=== PATIENT | female | born 1995 | race African-American/Black ===

== ENCOUNTER 2019-03-20 18:43 | Emergency (ER) | payer MEDICAID ==
[~2019-03-20] VITALS: Ht 157.5 cm; Wt 49.0 kg
[2019-03-20 18:54] VITALS: BP 105/71
--- NOTE | 2019-03-20 18:55 | NUR ---
ED Nurse Note: Walk-inpatient presents with complaints of excesive bleeding after taking pill.
[2019-03-20] MEDS ORDERED: NKM (18:58)
[2019-03-20] MEDS ORDERED: Metoclopramide 10mg/2ml Inj IVP ONE (19:15)
--- NOTE | 2019-03-20 19:41 | NUR ---
ED Nurse Note: Patient taken down to ultrasound by electronic lab technician.
[2019-03-20 20:47] VITALS: BP 105/71
--- NOTE | 2019-03-20 20:47 | NUR ---
AMA: SEE AMA FORM.
--- NOTE | 2019-03-20 22:51 | Emergency Room Report ---
History of Present Illness General Chief Complaint: Vaginal Source: Patient Present Illness HPI 23-year-old female with no significant past medical history who is G3 P 1 day 2 here complaining of increased uterine bleeding after taking an unknown pill for having selective 4 days ago. Patient denies any abdominal pain or cramping, nausea vomiting, fever and chills, chest pain, shortness of breath, palpitation, syncope. Reports that she has been bleeding excessively since Wednesday. She took the pill on Wednesday night. Patient had a selective 2 years ago in the same pill however reports that he did not have this much bleeding. Patient tried going to her [employer] today however was unable to be seen by her. She denies any distress. Does not want to have any blood drawn. Is requesting an ultrasound as she is afraid she is having ectopic . Denies other associated symptoms. However patient leaves AGAINST MEDICAL ADVICE after she is told that her ultrasound does not show any heart rate or intrauterine . Patient does not wait for any blood draw and we were unable to compare her beta hCG levels with ultrasound. Patient is aware of the consequences and risks of leaving AGAINST MEDICAL ADVICE. Allergies: Coded Allergies: No Known Allergies (Unverified , 03/20/19) Patient History Past Medical History: see triage record Past Surgical History: unable to obtain Pertinent Family History: none Last Menstrual Period: 02/03/19 Now: No - UNK Immunizations: UTD Reviewed Nursing Documentation: PMH: Agreed; PSxH: Agreed Nursing Documentation-PMH Past Medical History: No Stated History Review of Systems All Other Systems: negative except mentioned in HPI Physical Exam Vital Signs Date Time Temp Pulse Resp B/P (MAP) Pulse Ox O2 Delivery O2 Flow Rate FiO2 03/20/19 18:54 99.0 89 15 105/71 98 Room Air Sp02 EP Interpretation: reviewed, normal General Appearance: no apparent distress, alert, GCS 15, non-toxic Head: normocephalic, atraumatic Eyes: bilateral eye normal inspection, bilateral eye PERRL ENT: hearing grossly normal, normal pharynx, no angioedema, normal voice Neck: full range of motion, supple/symm/no masses Respiratory: chest non-tender, lungs clear, normal breath sounds, speaking full sentences Cardiovascular #1: regular rate, rhythm, no edema Gastrointestinal: normal bowel sounds, non tender, soft, non-distended, no guarding, no rebound Genitourinary: normal inspection, no CVA tenderness Neurologic: alert, oriented x3, responsive, motor strength/tone normal, sensory intact, speech normal Psychiatric: judgement/insight normal, memory normal, mood/affect normal, no suicidal/homicidal ideation Skin: no rash, normal color Lymphatic: no adenopathy Medical Decision Making PA Attestation All my diagnosis and treatment plans were reviewed ad discussed with my supervising physician Dr. Hopkins Diagnostic Impression: Primary Impression: Vaginal bleeding Additional Impression: Complete ER Course 23-year-old female with no significant past medical history who is G3 P 1 day 2 here complaining of increased uterine bleeding after taking an unknown pill for having selective 4 days ago. Patient denies any abdominal pain or cramping, nausea vomiting, fever and chills, chest pain, shortness of breath, palpitation, syncope. Reports that she has been bleeding excessively since Wednesday. She took the pill on Wednesday night. Patient had a selective 2 years ago in the same pill however reports that he did not have this much bleeding. Patient tried going to her [employer] today however was unable to be seen by her. She denies any distress. Does not want to have any blood drawn. Is requesting an ultrasound as she is afraid she is having ectopic . Denies other associated symptoms. However patient leaves AGAINST MEDICAL ADVICE after she is told that her ultrasound does not show any heart rate or intrauterine . Patient does not wait for any blood draw and we were unable to compare her beta hCG levels with ultrasound. Patient is aware of the consequences and risks of leaving AGAINST MEDICAL ADVICE. Ddx considered but are not limited to: UTI, ectopic , incomplete threatened , complicated post status Vital signs: are WNL, pt. is afebrile H&PE are most consistent with: Complete ORDERS: CBC, beta-hCG, OB ultrasound ED INTERVENTIONS: None required at this time. DISCHARGE: At this time pt. is stable for d/c to home. Will provide printed patient care instructions, and any necessary prescriptions. Care plan and follow up instructions have been discussed with the patient prior to discharge. Patient leaves AGAINST MEDICAL ADVICE. The risks of leaving AGAINST MEDICAL ADVICE. Patient stable at time of discharge advice. Patient is aware that she needs to follow-up with her [employer]. CT/MRI/US Diagnostic Results CT/MRI/US Diagnostic Results : Imaging Test Ordered: OB ultrasound Impression No heart rate, no intrauterine , final report still pending Last Vital Signs Date Time Temp Pulse Resp B/P (MAP) Pulse Ox O2 Delivery O2 Flow Rate FiO2 03/20/19 20:47 99.0 89 15 105/71 98 Room Air Disposition: AGAINST MEDICAL ADVICE Condition: Serious Referrals: NON PHYSICIAN (PCP) Gemini Davidson Mar 20, 2019 22:50
--- NOTE | 2019-03-21 14:37 | Diagnostic Imaging Report ---
Indication: Pelvic pain and vaginal bleeding. Patient reports recent positive and use of abortifacient medication, but beta-hCG values could be obtained during this ER visit, per the electronic medical record Technique: Transabdominal and transvaginal images of the pelvis. Doppler interrogation of the ovaries Comparison: none Findings: Uterus is retroflexed. It measures 9.8 cm length by 4.6 cm AP. The endometrium measures 17 mm thick. No intrauterine demonstrated. No myometrial abnormality. Left ovary measures 3.1 cm length. Right ovary measures 2.8 cm length. Both ovaries demonstrate normal flow on Doppler. There is questionably some free cul-de-sac fluid Impression: No intrauterine demonstrated. Differential considerations include pharmacologically-induced or spontaneous , ectopic , very early . Correlate with clinical findings and serial beta-hCGs Thickened endometrium, likely related to recent state. Negative for or ovarian or adnexal mass Possible free cul-de-sac fluid, presumably physiologic if real This agrees with the preliminary interpretation provided overnight by Dr. Pitt
== END 2019-03-20 20:47 | disposition left against medical advice (07) ==
LOC: EMR 19:06
DX: O03.9 Complete or unspecified spontaneous abortion without complication (principal)
CPT/HCPCS: 76801; 76830; 96361; 96374; Z7502; 99284; J2765